=== PATIENT | male | born 1940 | race Caucasian/White ===

== ENCOUNTER 2018-02-15 16:55 | Emergency (ER) | payer OTHER ==
[2018-02-15 17:06] VITALS: BP 155/87; PULSE 82; TEMP 97.5; BMI 27.1
--- NOTE | 2018-02-15 17:58 | PDOC ---
History of Present Illness - General Chief Complaint: Pain Stated Complaint: STOMACH PAIN Time Seen by Provider: 02/15/18 17:50 - History of Present Illness Initial Comments: 02/15/18 17:56 78-year-old male presents for evaluation of an area of swelling and discomfort in his mid chest and abdominal area which has been there for years. He states there is a masturbates been getting bigger over the last few weeks. However amasses been there for years and he has been worked up by his physician which diagnosed him with a lipoma. No other associated symptoms. No systemic symptoms. Past History - Past Medical History Allergies/Adverse Reactions: Allergies Allergy/AdvReac Type Severity Reaction Status Date / Time No Known Allergies Allergy Verified 02/15/18 17:00 Home Medications: Ambulatory Orders Omeprazole 20 mg PO ASDIR 02/15/18 COPD: No Other medical history: arthritis - Immunization History Immunization Up to Date: Yes - Suicide/Smoking/Psychosocial Hx Smoking History: Never smoked Hx Alcohol Use: Yes (daily) Drug/Substance Use Hx: No Review of Systems - Review of Systems Constitutional: No: Fever Integumentary: Yes: See HPI, Lesions *Physical Exam - Vital Signs Last Vital Signs Temp Pulse Resp BP Pulse Ox 97.5 F L 82 18 155/87 97 02/15/18 17:01 02/15/18 17:01 02/15/18 17:01 02/15/18 17:01 02/15/18 17:01 - Physical Exam Comments: 02/15/18 17:57 There is about a 4 cm freely mobile nontender mass about the subcutaneous area overlying the xiphoid process. Normal overlying skin color and temperature Moderate Sedation - Procedure Monitoring Vital Signs: Procedure Monitoring Vital Signs Temperature 97.5 F L 02/15/18 17:01 Pulse Rate 82 02/15/18 17:01 Respiratory Rate 18 02/15/18 17:01 Blood Pressure 155/87 02/15/18 17:01 O2 Sat by Pulse Oximetry (%) 97 02/15/18 17:01 *DC/Admit/Observation/Transfer Diagnosis at time of Disposition: Lipoma of anterior chest wall - Discharge Dispostion Disposition: HOME Condition at time of disposition: Stable Decision to Admit order: No - Referrals Referrals: Filiberto Conroy MD [Staff Physician] - - Patient Instructions Printed Discharge Instructions: Lipoma Additional Instructions: May take Tylenol or Motrin for any associated discomfort. Please follow up with general surgery in 2-3 days for further evaluation and treatment options and return to the emergency room should symptoms worsen or go unresolved. - Post Discharge Activity
== END 2018-02-15 18:22 | disposition home or self-care (01) ==
LOC: JERFT 16:55
DX: D17.1 Benign lipomatous neoplasm of skin and subcutaneous tissue of trunk (principal)
CPT/HCPCS: 99281-25

== ENCOUNTER 2018-04-14 11:37 | Observation (INO) | payer OTHER ==
--- NOTE | 2018-04-14 12:00 | PDOC ---
History of Present Illness - General Chief Complaint: Chest Pain Stated Complaint: CHEST PAIN/COUGH Time Seen by Provider: 04/14/18 12:00 - History of Present Illness Initial Comments: 04/14/18 12:15 78 year old with past medical history of arthritis who presents with 1 month of cough productive of yellow and clear phlegm and shortness of breath and anterior chest pain only while coughing. The daughter brought him in because she was concerned that his symptoms have been going on for so long and because he will wake up at night gasping for air. The patient used to smoke 4-5 cigarettes a day for 40 years but quit smoking 22 years ago. For his symptoms that patient has been taking Tylenol and Advil. The patient denies any recent fevers, n/v/d but admits to constipation. The daughter notes that earlier in the course of symptoms the patient had a fever and one days had vomiting and diarrhea. The patient denies any other complaints at bedside. Past History - Past Medical History Allergies/Adverse Reactions: Allergies Allergy/AdvReac Type Severity Reaction Status Date / Time No Known Allergies Allergy Verified 04/14/18 11:42 Home Medications: Ambulatory Orders Omeprazole 20 mg PO ASDIR 02/15/18 Azithromycin [Zithromax Tri-Michael (3 DAYS) -] 500 mg PO DAILY #3 tablet 04/14/18 COPD: No - Immunization History Immunization Up to Date: Yes - Suicide/Smoking/Psychosocial Hx Smoking History: Never smoked Have you smoked in the past 12 months: No Information on smoking cessation initiated: No Hx Alcohol Use: No Drug/Substance Use Hx: No *Physical Exam - Vital Signs Last Vital Signs Temp Pulse Resp BP Pulse Ox 97.6 F 89 16 132/79 100 04/14/18 11:52 04/14/18 11:52 04/14/18 11:52 04/14/18 11:52 04/14/18 11:52 - Physical Exam Comments: 04/14/18 12:21 GENERAL: Awake, alert, and fully oriented, in no acute distress HEAD: No signs of trauma, normocephalic, atraumatic EYES: EOMI, sclera anicteric, conjunctiva clear ENT: oropharynx clear without exudates. Moist mucosa NECK: Normal ROM, supple LUNGS: No distress, speaks full sentences, clear to auscultation bilaterally HEART: Regular rate and rhythm, normal S1 and S2, no murmurs, rubs or gallops, peripheral pulses normal and equal bilaterally. ABDOMEN: Soft, nontender, normoactive bowel sounds. No guarding, no rebound. No masses EXTREMITIES : Normal inspection, Normal range of motion, no edema. No clubbing or cyanosis. NEUROLOGICAL: Cranial nerves II through XII grossly intact. Normal speech, no focal sensorimotor deficits SKIN: Warm, Dry, normal turgor, no rashes or lesions noted Moderate Sedation - Procedure Monitoring Vital Signs: Procedure Monitoring Vital Signs Temperature 97.6 F 04/14/18 11:52 Pulse Rate 89 04/14/18 11:52 Respiratory Rate 16 04/14/18 11:52 Blood Pressure 132/79 04/14/18 11:52 O2 Sat by Pulse Oximetry (%) 100 04/14/18 11:52 ED Treatment Course - LABORATORY CBC & Chemistry Diagram: 04/14/18 12:12 04/14/18 12:12 Medical Decision Making - Medical Decision Making 04/14/18 12:21 78 year old with past medical history of arthritis who presents with 1 month of cough productive of yellow and clear phlegm and shortness of breath and anterior chest pain only while coughing. The daughter brought him in because she was concerned that his symptoms have been going on for so long and because he will wake up at night gasping for air. The patient used to smoke 4-5 cigarettes a day for 40 years but quit smoking 22 years ago. For his symptoms that patient has been taking Tylenol and Advil. ED Course: consider bronchitis vs pna vs copd vs acs vs arrythmia cbc, cmp, ekg, cxr, trop duoneb EKG: normal sinus rhythm HR 80, no interval abnormalities, RBBB, narrow QRS, ST and T wave segments and morphology normal. CXR: mammilation of the hemidiaphragms, midline airway, appropriate vascular markings, no blunting of costophrenic angle, no cardiomegaly, as read by this sports writer and attending. *DC/Admit/Observation/Transfer Diagnosis at time of Disposition: NSTEMI (non-ST elevated myocardial infarction) - Discharge Dispostion Condition at time of disposition: Stable Decision to Admit order: Yes - Prescriptions Prescriptions: Azithromycin [Zithromax Tri-Michael (3 DAYS) -] 500 mg PO DAILY #3 tablet - Referrals - Patient Instructions - Post Discharge Activity
--- NOTE | 2018-04-14 12:12 | PDOC ---
Attending Attestation - HPI HPI: 04/14/18 12:43 The patient is a 78 year old male with a significant PMH of arthritis who presents to the emergency department with a productive cough for about 1 month. The patient reports that he has been waking up lately gasping for air secondary to his symptom. He also reports some associated chest pain with his productive cough. The patient reports that he was a smoker in the past but has not been a smoker for about 22 years. The patient endorses taking some tylenol/advil for his symptoms with no apparent relief. He denies any other symptoms. He denies any fever, chills, nausea, vomiting, diarrhea, constipation or urinary symptoms. He denies any shortness of breath, headache or dizziness. The patient denies any other complaints. Documentation prepared by Candelaria Garcia, acting as director of medical staff services for Anna Marie Carey MD. <Candelaria Garcia - Last Filed: 04/14/18 12:43> - Resident Resident Name: Venus Alaniz - ED Attending Attestation I have performed the following: I have examined & evaluated the patient, The case was reviewed & discussed with the resident, I agree w/resident's findings & plan, Exceptions are as noted - Physicial Exam PE: GENERAL: Awake, alert, and fully oriented, in no acute distress HEAD: No signs of trauma. +Tenderness over frontal sinuses. EYES: PERRLA, EOMI, sclera anicteric, conjunctiva clear ENT: Auricles normal inspection, hearing grossly normal, nares patent, oropharynx clear without exudates. Moist mucosa NECK: Normal ROM, supple, no lymphadenopathy, JVD, or masses LUNGS: Mildly decreased air entry B/L. No wheezes. +Rhonchi. Intermittent productive cough. HEART: Regular rate and rhythm, normal S1 and S2, no murmurs, rubs or gallops ABDOMEN: Soft, nontender, normoactive bowel sounds. No guarding, no rebound. No masses EXTREMITIES: Normal range of motion, no edema. No clubbing or cyanosis. No cords, erythema, or tenderness NEUROLOGICAL: Cranial nerves II through XII grossly intact. Normal speech, normal gait. Motor and sensation intact SKIN: Warm, Dry, normal turgor, no rashes or lesions noted. - Medical Decision Making Pt with hacking productive cough, sinus tenderness. Symptoms have persisted for 1 month. Suspect a bronchitis, will start abx. Will send labs. <Anna Marie Carey - Last Filed: 04/14/18 14:33>
[2018-04-14] MEDS ORDERED: ALBUTEROL SO4 2.5/IPRATROPIUM 0.5 INH SOL 3 ML VIAL.NEB. NEB ONE ×3 (12:19→20:32)
[2018-04-14 12:32] LABS: BASO % 2.9 % (0-2.0); EOS % 9.6 % (0-4.5); HEMATOCRIT 37.8 % (35.4-49); HEMOGLOBIN 13.4 GM/dL (11.7-16.9); MCH 33.9 pg (25.7-33.7); MCHC 35.4 g/dl (32.0-35.9); MEAN CELL VOLUME 95.9 fl (80-96); MEAN PLT VOLUME 9.3 fl (7.5-11.1); MONO % 7.8 % (3.8-10.2); NEUT % 57.7 % (42.8-82.8); PLATELET COUNT 243 K/MM3 (134-434); RBC 3.94 M/mm3 (4.00-5.60); RDW 13.6 % (11.9-15.9); WHITE BLOOD COUNT 6.4 K/mm3 (4.0-10.0)
[2018-04-14 13:07] LABS: ALBUMIN 3.4 g/dl (3.4-5.0); ALK PHOS 90 U/L (45-117); ANION GAP 5 MMOL/L (8-16); BILIRUBIN,TOTAL 0.6 mg/dL (0.2-1); BLOOD UREA NITROGEN 15 mg/dL (7-18); CALCIUM 8.4 mg/dL (8.5-10.1); CHLORIDE 104 mmol/L (98-107); CO2 30 mmol/L (21-32); CREATININE 0.8 mg/dL (0.55-1.3); GLUCOSE,RANDOM 115 mg/dL (74-106); POTASSIUM 4.2 mmol/L (3.5-5.1); SGOT/AST 29 U/L (15-37); SGPT/ALT 21 U/L (13-61); SODIUM 138 mmol/L (136-145); TOT PROT 6.5 g/dl (6.4-8.2)
[2018-04-14] MEDS ORDERED: ASPIRIN 325 MG TABLET PO ONE (13:17)
[2018-04-14] MEDS ORDERED: AZITHROMYCIN IVPB 500 MG in DEXTROSE 5%-WATER - 250 ML IVPB ONE (13:49)
[2018-04-14] MEDS ORDERED: ASPIRIN 325 MG TABLET ONE (14:24)
[2018-04-14] MEDS ORDERED: AZITHROMYCIN IVPB 500 MG/250 ML BAG IVPB ONE (14:24)
--- NOTE | 2018-04-14 14:41 | HP ---
CHIEF COMPLAINT: shortness of breath PCP: none HISTORY OF PRESENT ILLNESS: 78 yom with 40 pack year smoking history, reportedly quit 22 years ago,also with arthritis, comes with 1 month of progressive shortness of breath, cough with yellowish sputum, nasal stuffiness, post nasal drip. Over the last few days , daughter noticed patient was getting short of breath with lesser exertional, ongoing coughing with whitish sputum, so brought him to the ED. Per the daughter overall coughing and dyspnea having been going on for a few months, seems is progressing. No fevers, chills, chest pain, palpitations, dyspnea, dizziness, sick contacts, recent antibiotics, orthopnea/PND, leg swelling, abdominal or urinary symptoms. Reports weight gain 10 lbs over last 3 months. Did not receive flu vaccine this year. 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, retired From [place], lives with daughter independent in ADLs Family History: denies CAD/SCD or strokes in family Allergies No Known Allergies Allergy (Verified 04/14/18 11:42) HOME MEDICATIONS: Home Medications Medication Instructions Recorded Omeprazole 20 mg PO ASDIR 02/15/18 Azithromycin [Zithromax Tri-Michael (3 500 mg PO DAILY #3 tablet 04/14/18 DAYS) -] REVIEW OF SYSTEMS CONSTITUTIONAL: Present: weight gain as above Absent: fever, chills, diaphoresis, generalized weakness, malaise, loss of appetite HEENT: Present: rhinorrhea, nasal congestion, throat pain, Absent: throat swelling, difficulty swallowing, mouth swelling, ear pain, eye pain, visual changes CARDIOVASCULAR: Absent: chest pain, syncope, palpitations, irregular heart rate, lightheadedness , peripheral edema RESPIRATORY: Present: cough, shortness of breath, dyspnea with exertion, Absent: orthopnea, wheezing, stridor, hemoptysis GASTROINTESTINAL: Absent: abdominal pain, abdominal distension, nausea, vomiting, diarrhea, constipation, melena, hematochezia GENITOURINARY: Absent: dysuria, frequency, urgency, hesitancy, hematuria, flank pain, genital pain MUSCULOSKELETAL: Absent: myalgia, arthralgia, joint swelling, back pain, neck pain SKIN: Absent: rash, itching, pallor HEMATOLOGIC/IMMUNOLOGIC: Absent: easy bleeding, easy bruising, lymphadenopathy, frequent infections ENDOCRINE: Absent: unexplained weight loss, heat intolerance, cold intolerance NEUROLOGIC: Absent: headache, focal weakness or paresthesias, dizziness, unsteady gait, seizure, mental status changes, bladder or bowel incontinence PSYCHIATRIC: Absent: anxiety, depression, suicidal or homicidal ideation, hallucinations. PHYSICAL EXAMINATION Vital Signs - 24 hr 04/14/18 11:52 Temperature 97.6 F Pulse Rate 89 Respiratory 16 Rate Blood Pressure 132/79 O2 Sat by Pulse 100 Oximetry (%) GENERAL: Awake, alert, and fully oriented, in no acute distress. HEAD: Normal with no signs of trauma. EYES: Pupils equal, round and reactive to light, extraocular movements intact, sclera anicteric, conjunctiva clear. No lid lag. EARS, NOSE, THROAT: Ears normal, nares patent, oropharynx clear without exudates. Moist mucous membranes. NECK: soft, supple, no JVD appreciated, neck vein distension LUNGS: decreased air entry all over, few left basilar rales, no wheezing HEART: Regular rate and rhythm, normal S1 and S2 , unable to appreciate murmur/ rubs or gallops ABDOMEN: Soft, distended, non tender throughout, Hernia in xiphoid region and umbilicus, non tendeer, obese, no voluntary or involuntary guarding or rigidity , positive bowel sounds MUSCULOSKELETAL: Normal range of motion at all joints. No bony deformities or tenderness. No CVA tenderness. UPPER EXTREMITIES: 2+ pulses, warm, well-perfused. No cyanosis. No clubbing. No peripheral edema. LOWER EXTREMITIES: bilaterl palpable DP pulses, varicosities, chronic skin changes with discoloration bilateral feel with lower 1/3 leg, trace pedal edema NEUROLOGICAL: AAOX3, power 5/5, facial symmetry, tongue midline. Cranial nerves II-XII intact. Normal speech. Normal gait. PSYCHIATRIC: Cooperative. Good eye contact. Appropriate mood and affect. SKIN: Warm, dry, normal turgor, no rashes or lesions noted, normal capillary refill. Laboratory Results - last 24 hr 04/14/18 04/14/18 12:12 12:12 WBC 6.4 RBC 3.94 L Hgb 13.4 Hct 37.8 MCV 95.9 MCH 33.9 H MCHC 35.4 RDW 13.6 Plt Count 243 MPV 9.3 Absolute Neuts (auto) 3.7 Neutrophils % 57.7 Lymphocytes % 22.0 Monocytes % 7.8 Eosinophils % 9.6 H Basophils % 2.9 H Nucleated RBC % 0 Sodium 138 Potassium 4.2 Chloride 104 Carbon Dioxide 30 Anion Gap 5 L BUN 15 Creatinine 0.8 Creat Clearance w eGFR > 60 Random Glucose 115 H Calcium 8.4 L Total Bilirubin 0.6 AST 29 ALT 21 Alkaline Phosphatase 90 Troponin I 0.06 H Total Protein 6.5 Albumin 3.4 CXR result and images reviewed EKG NSR, RBBB ASSESSMENT/PLAN: 78 yom with piror heavy smoking history admitted with 1 month of cough and progressive dyspnea on exertion with borderline elevated troponin -Cough/dyspnea on exertion, suspect acute vs chronic bronchitis in the setting of underlying undiagnosed COPD, low suspicion for ACS or cardiac etiology -Elevated troponin, ?demand ischemia in the setting of above, clinical presentation not consistent with ACS, unlikely PE based on current absence, absence of hypoxia/tachycardia/pleuritic symptoms or risk factors -Arthritis Plan: Trial with azithromycin. Standing and prn nebs. Add symbicort. CT Chest, assess for underlying lung disease. telemetry, cycle troponin. Check 2Decho. Current presentation and exam not concerning for ACS, however will consult cardiology if repeat troponin elevated, rising or new concerns. Will need ischemia w/u inpatient vs outpatient based on clinical course. ASA. Check lipid panel/A1c. DVTPPX lovenox Disposition: admit to tele observation. D/c in 24hours if w/u neg, and no new concerns. Plan discussed with patient and daughter at bedside in detail, all questions answered. Total admit time spent 55 min. Visit type - Emergency Visit Emergency Visit: Yes ED Registration Date: 04/14/18 Care time: The patient presented to the Emergency Department on the above date and was hospitalized for further evaluation of their emergent condition. - New Patient This patient is new to me today: Yes Date on this admission: 04/14/18 - Critical Care Critical Care patient: No
--- NOTE | 2018-04-14 19:45 | EKG ---
Test Reason : Blood Pressure : / mmHG Vent. Rate : 080 BPM Atrial Rate : 080 BPM P-R Int : 152 ms QRS Dur : 124 ms QT Int : 410 ms P-R-T Axes : 042 004 036 degrees QTc Int : 472 ms NORMAL SINUS RHYTHM RIGHT BUNDLE BRANCH BLOCK ABNORMAL ECG NO PREVIOUS ECGS AVAILABLE Confirmed by MD PORTILLO, ETHAN ([id number]) on 04/14/2018 7:45:24 PM Referred By: Confirmed By:ETHAN NATH MD
[2018-04-14 21:24] VITALS: BMI 27.6
[2018-04-14] MEDS: ALBUTEROL SO4 2.5/IPRATROPIUM 0.5 INH SOL 3 ML VIAL.NEB. NEB PRN (21:30)
[2018-04-14] MEDS: BUDESONIDE/FORMETEROL FUMARATE 80/4.5 mcg INHALER IH SCH (22:50)
[2018-04-14] MEDS ORDERED: PT OWN MED DRAWER 7, Y5N ONE (23:07)
[2018-04-14] MEDS: ACETAMINOPHEN 325 MG TABLET (FP) PO PRN (23:16)
[2018-04-15 07:23] LABS: BASO % 0.8 % (0-2.0); EOS % 10.3 % (0-4.5); HEMATOCRIT 34.9 % (35.4-49); LYMPH % 36.6 % (8-40); MCH 33.1 pg (25.7-33.7); MCHC 34.4 g/dl (32.0-35.9); MEAN CELL VOLUME 96.2 fl (80-96); MEAN PLT VOLUME 9.4 fl (7.5-11.1); MONO % 7.8 % (3.8-10.2); NEUT % 44.5 % (42.8-82.8); PLATELET COUNT 210 K/MM3 (134-434); RBC 3.62 M/mm3 (4.00-5.60); RDW 13.7 % (11.9-15.9); WHITE BLOOD COUNT 5.7 K/mm3 (4.0-10.0)
[2018-04-15] MEDS: ALBUTEROL SO4 2.5/IPRATROPIUM 0.5 INH SOL 3 ML VIAL.NEB. NEB PRN ×2 (07:31→11:46)
[2018-04-15 07:51] LABS: CHOLESTEROL 152 mg/dL (50-200); HDL CHOLESTEROL 29 mg/dL (40-60); TRIGLYCERIDES 148 mg/dL (0-150)
[2018-04-15 07:57] LABS: ANION GAP 5 MMOL/L (8-16); BLOOD UREA NITROGEN 15 mg/dL (7-18); CALCIUM 8.4 mg/dL (8.5-10.1); CHLORIDE 104 mmol/L (98-107); CO2 30 mmol/L (21-32); CREATININE 0.8 mg/dL (0.55-1.3); GLUCOSE,RANDOM 100 mg/dL (74-106); MAGNESIUM 2.2 mg/dL (1.8-2.4); N-TERMINAL BNP 118.6 pg/ml (5-450); PHOSPHOROUS 4.5 mg/dL (2.5-4.9); SODIUM 139 mmol/L (136-145)
--- NOTE | 2018-04-15 09:51 | PN ---
Physical Exam: SUBJECTIVE: Patient seen and examined OBJECTIVE: Vital Signs Period Temp Pulse Resp BP Sys/Antonio Pulse Ox Last 24 Hr 97.6 F-99.2 F 71-95 16-20 108-135/56-79 97-100 GENERAL: The patient is awake, alert, and fully oriented, in no acute distress. HEAD: Normal with no signs of trauma. EYES: PERRL, extraocular movements intact, sclera anicteric, conjunctiva clear. No ptosis. ENT: Ears normal, nares patent, oropharynx clear without exudates, moist mucous membranes. NECK: Trachea midline, full range of motion, supple. LUNGS: Breath sounds equal, clear to auscultation bilaterally, no wheezes, no crackles, no accessory muscle use. HEART: Regular rate and rhythm, S1, S2 without murmur, rub or gallop. ABDOMEN: Soft, nontender, nondistended, normoactive bowel sounds, no guarding, no rebound, no hepatosplenomegaly, no masses. EXTREMITIES: 2+ pulses, warm, well-perfused, no edema. NEUROLOGICAL: Cranial nerves II through XII grossly intact. Normal speech, gait not observed. PSYCH: Normal mood, normal affect. SKIN: Warm, dry, normal turgor, no rashes or lesions noted Laboratory Results - last 24 hr 04/14/18 04/14/18 04/14/18 12:12 12:12 17:55 WBC 6.4 RBC 3.94 L Hgb 13.4 Hct 37.8 MCV 95.9 MCH 33.9 H MCHC 35.4 RDW 13.6 Plt Count 243 MPV 9.3 Absolute Neuts (auto) 3.7 Neutrophils % 57.7 Lymphocytes % 22.0 Monocytes % 7.8 Eosinophils % 9.6 H Basophils % 2.9 H Nucleated RBC % 0 Sodium 138 Potassium 4.2 Chloride 104 Carbon Dioxide 30 Anion Gap 5 L BUN 15 Creatinine 0.8 Creat Clearance w eGFR > 60 Random Glucose 115 H Hemoglobin A1c % Calcium 8.4 L Phosphorus Magnesium Total Bilirubin 0.6 AST 29 ALT 21 Alkaline Phosphatase 90 Troponin I 0.06 H 0.05 B-Natriuretic Peptide Total Protein 6.5 Albumin 3.4 Triglycerides Cholesterol Total LDL Cholesterol HDL Cholesterol 04/14/18 04/15/18 04/15/18 21:30 05:30 05:30 WBC 5.7 RBC 3.62 L Hgb 12.0 Hct 34.9 L MCV 96.2 H MCH 33.1 MCHC 34.4 RDW 13.7 Plt Count 210 MPV 9.4 Absolute Neuts (auto) 2.6 Neutrophils % 44.5 D Lymphocytes % 36.6 D Monocytes % 7.8 Eosinophils % 10.3 H Basophils % 0.8 Nucleated RBC % 0 Sodium 139 Potassium 4.0 Chloride 104 Carbon Dioxide 30 Anion Gap 5 L BUN 15 Creatinine 0.8 Creat Clearance w eGFR > 60 Random Glucose 100 Hemoglobin A1c % Calcium 8.4 L Phosphorus 4.5 Magnesium 2.2 Total Bilirubin AST ALT Alkaline Phosphatase Troponin I 0.06 H B-Natriuretic Peptide 118.6 Total Protein Albumin Triglycerides Cholesterol Total LDL Cholesterol HDL Cholesterol 04/15/18 04/15/18 04/15/18 05:30 05:30 05:30 WBC RBC Hgb Hct MCV MCH MCHC RDW Plt Count MPV Absolute Neuts (auto) Neutrophils % Lymphocytes % Monocytes % Eosinophils % Basophils % Nucleated RBC % Sodium Potassium Chloride Carbon Dioxide Anion Gap BUN Creatinine Creat Clearance w eGFR Random Glucose Hemoglobin A1c % 6.0 Calcium Phosphorus Magnesium Total Bilirubin AST ALT Alkaline Phosphatase Troponin I 0.06 H B-Natriuretic Peptide Total Protein Albumin Triglycerides 148 Cholesterol 152 Total LDL Cholesterol 104 H HDL Cholesterol 29 L Active Medications Generic Name Dose Route Start Last Admin Trade Name Freq PRN Reason Stop Dose Admin Acetaminophen 650 mg 04/14/18 14:41 04/14/18 23:16 Tylenol - PO 650 mg Q6H PRN Administration HEADACHE Albuterol/Ipratropium 1 amp 04/14/18 14:47 04/15/18 07:31 Duoneb - NEB 1 amp Q4H PRN Administration SHORTNESS OF BREATH Aspirin 81 mg 04/15/18 10:00 Asa - PO DAILY KIP Azithromycin 500 mg 04/15/18 10:00 Zithromax - PO 04/16/18 10:01 DAILY KIP Budesonide/Formoterol Fumarate 2 puff 04/14/18 22:00 04/14/18 22:50 Symbicort 80/4.5mcg - IH 2 puff BID KIP Administration Enoxaparin Sodium 40 mg 04/15/18 10:00 Lovenox - SQ DAILY [facility] Fluticasone Propionate 1 spray 04/15/18 10:00 Flonase - NS BID [facility] Influenza Virus Vaccine Quadrival 60 mcg 02/20/19 11:00 Flulaval Quad [id number] IM 04/15/18 11:01 .ONCE ONE Pneumococcal 13-Valent Conj Vacc 0.5 ml 04/15/18 10:00 Prevnar 13 Syringe - IM 04/15/18 10:01 .ONCE ONE ASSESSMENT/PLAN:
[2018-04-15] MEDS ORDERED: ASPIRIN 81 MG CHEWABLE TABLETS PO SCH (10:00)
[2018-04-15] MEDS ORDERED: PNEUMOC 13-VAL CONJ-DIP CRM/PF 0.5 ML DISP.SYRIN IM ONE (10:00)
[2018-04-15] MEDS ORDERED: ENOXAPARIN NA (PORCINE) 40 MG/0.4 ML DISP.SYRIN SQ SCH (10:00)
[2018-04-15] MEDS ORDERED: AZITHROMYCIN 250 MG TABLET PO SCH (10:00)
[2018-04-15] MEDS ORDERED: FLUTICASONE PROP 0.05% 16 GM NASAL SPRAY NS SCH (10:00)
[2018-04-15] MEDS ORDERED: PT OWN MED DRAWER 7, Y5N ONE (10:22)
[2018-04-15] MEDS: BUDESONIDE/FORMETEROL FUMARATE 80/4.5 mcg INHALER IH SCH (10:27)
[2018-04-15] MEDS ORDERED: FLU VACCINE QUAD 60 MCG/0.5 ML (MDV 18-19) IM ONE (11:00)
[2018-04-15] MEDS: ACETAMINOPHEN 325 MG TABLET (FP) PO PRN (11:11)
--- NOTE | 2018-04-15 14:43 | PN ---
Teaching Attending Note Name of Resident: Gabo Palma ATTENDING PHYSICIAN STATEMENT I saw and evaluated the patient. I reviewed the resident's note and discussed the case with the resident. I agree with the resident's findings and plan as documented. SUBJECTIVE: Mr Jewell complains of cough but otherwise is doing well. Denies cp, sob, n/v OBJECTIVE: Last Vital Signs Temp Pulse Resp BP Pulse Ox 36.6 C 73 16 125/69 97 04/15/18 12:27 04/15/18 12:27 04/15/18 12:27 04/15/18 12:27 04/15/18 10:03 Gen: nad Pulm: ctab w/o w/r/r CV: rrr w/o m/r/g Abd: +bs, s/nt/nd Ext: no c/c/e CBC, BMP 04/15/18 05:30 04/15/18 05:30 ASSESSMENT AND PLAN: -patient with chronic bronchitis -troponins negative -continue symbicort -continue duonebs -will be discharged on this -awaiting ECHO -if negative, can discharge home Problem List - Problems (1) Chronic bronchitis Code(s): J42 - UNSPECIFIED CHRONIC BRONCHITIS Qualifiers: Chronic bronchitis type: simple Qualified Code(s): J41.0 - Simple chronic bronchitis
--- NOTE | 2018-04-15 15:08 | DS ---
Physical Exam: SUBJECTIVE: Patient seen and examined OBJECTIVE: Vital Signs Period Temp Pulse Resp BP Sys/Antonio Pulse Ox Last 24 Hr 97.8 F-99.2 F 71-95 16-20 108-135/56-75 97-98 PHYSICAL EXAM GENERAL: Awake, alert, and fully oriented, in no acute distress. HEAD: Normal with no signs of trauma. EARS, NOSE, THROAT: Moist mucous membranes. NECK: soft, supple, no JVD appreciated, neck vein distension LUNGS: b/l good air entry, no wheezing HEART: Regular rate and rhythm, normal S1 and S2 , unable to appreciate murmur/ rubs or gallops ABDOMEN: Soft, distended, non tender throughout, Hernia in xiphoid region and umbilicus, non tendeer, obese, no voluntary or involuntary guarding or rigidity , positive bowel sounds MUSCULOSKELETAL: Normal range of motion at all joints. No bony deformities or tenderness. No CVA tenderness. UPPER EXTREMITIES: 2+ pulses, warm, well-perfused. No cyanosis. No clubbing. No peripheral edema. LOWER EXTREMITIES: bilaterl palpable DP pulses, varicosities, chronic skin changes with discoloration bilateral feel with lower 1/3 leg, trace pedal edema SKIN: Warm, dry, LABS Laboratory Results - last 24 hr 04/14/18 04/14/18 04/15/18 17:55 21:30 05:30 WBC 5.7 RBC 3.62 L Hgb 12.0 Hct 34.9 L MCV 96.2 H MCH 33.1 MCHC 34.4 RDW 13.7 Plt Count 210 MPV 9.4 Absolute Neuts (auto) 2.6 Neutrophils % 44.5 D Lymphocytes % 36.6 D Monocytes % 7.8 Eosinophils % 10.3 H Basophils % 0.8 Nucleated RBC % 0 Sodium Potassium Chloride Carbon Dioxide Anion Gap BUN Creatinine Creat Clearance w eGFR Random Glucose Hemoglobin A1c % Calcium Phosphorus Magnesium Troponin I 0.05 0.06 H B-Natriuretic Peptide Triglycerides Cholesterol Total LDL Cholesterol HDL Cholesterol 04/15/18 04/15/18 04/15/18 05:30 05:30 05:30 WBC RBC Hgb Hct MCV MCH MCHC RDW Plt Count MPV Absolute Neuts (auto) Neutrophils % Lymphocytes % Monocytes % Eosinophils % Basophils % Nucleated RBC % Sodium 139 Potassium 4.0 Chloride 104 Carbon Dioxide 30 Anion Gap 5 L BUN 15 Creatinine 0.8 Creat Clearance w eGFR > 60 Random Glucose 100 Hemoglobin A1c % 6.0 Calcium 8.4 L Phosphorus 4.5 Magnesium 2.2 Troponin I B-Natriuretic Peptide 118.6 Triglycerides 148 Cholesterol 152 Total LDL Cholesterol 104 H HDL Cholesterol 29 L 04/15/18 05:30 WBC RBC Hgb Hct MCV MCH MCHC RDW Plt Count MPV Absolute Neuts (auto) Neutrophils % Lymphocytes % Monocytes % Eosinophils % Basophils % Nucleated RBC % Sodium Potassium Chloride Carbon Dioxide Anion Gap BUN Creatinine Creat Clearance w eGFR Random Glucose Hemoglobin A1c % Calcium Phosphorus Magnesium Troponin I 0.06 H B-Natriuretic Peptide Triglycerides Cholesterol Total LDL Cholesterol HDL Cholesterol HOSPITAL COURSE: 78 yom with 40 pack year smoking history, reportedly quit 22 years ago,also with arthritis, comes with 1 month of progressive shortness of breath, cough with yellowish sputum, nasal stuffiness, post nasal drip. Over the last few days, daughter noticed patient was getting short of breath with lesser exertional, ongoing coughing with whitish sputum, so brought him to the ED. Examination and investigations were done. Ct chest was done which showed emphysema and pt was started on symbicort and ventolin. For nasal stuffiness pt is advised to use flonase inhaler and is also advised to take steam inhalation. ECHO was also done which shows mild to mod AR, Normal EF and stage 1 Diastolic HF. Cardiac monitoring in hospital didn't show any event. Now pt is feeling better and is dc is stable condition. We have started you on symbicort inhaler for trouble breathing and emhysema. We ave started you on aspirin. take one pill daily We have started you on cholestrol medication simvastatin . Take it in night. We have also started you on nasal spray flonase for yur nasal congestion. Please follow up with Dr Smiley pony trimmer for your further management of emphysema and PFT . Please follow up with energy systems engineer call your insurance and ask them which energy systems engineer he can go to. Please follow up with our primary care. dr frank hancock. Please follow up with surgeon dr Lemus for hernia. Eat low salt and low fat diet. Daily walk for 30 min. Please quit smoking and alcohol. In your CT scan. Two small left upper quadrant soft tissue nodules are seen which may be represent incidental accessory splenic tissue. Correlation with 3 month follow up abdomen CT is suggested. If you develop chest pain, sob, nausea, vomiting, lightheadedness or any new symptom please call doctor or go to hospital. Date of Admission:04/14/18 Date of Discharge: 04/15/18 Minutes to complete discharge: 45 Discharge Summary Reason For Visit: NSTEMI Current Active Problems Chronic bronchitis (Acute) NSTEMI (non-ST elevated myocardial infarction) (Acute) Condition: Stable - Instructions Diet, Activity, Other Instructions: We have started you on symbicort inhaler for trouble breathing and emhysema. We ave started you on aspirin. take one pill daily We have started you on cholestrol medication simvastatin . Take it in night. We have also started you on nasal spray flonase for yur nasal congestion. Please follow up with Dr Smiley pony trimmer for your further management of emphysema and PFT . Please follow up with energy systems engineer call your insurance and ask them which energy systems engineer he can go to. Please follow up with our primary care. dr frank hancock. Please follow up with surgeon dr Lemus for hernia. Eat low salt and low fat diet. Daily walk for 30 min. Please quit smoking and alcohol. In your CT scan. Two small left upper quadrant soft tissue nodules are seen which may be represent incidental accessory splenic tissue. Correlation with 3 month follow up abdomen CT is suggested. If you develop chest pain, sob, nausea, vomiting, lightheadedness or any new symptom please call doctor or go to hospital. Referrals: Frank Hancock MD [Staff Physician] - 1 Week Devan Smiley MD [Staff Physician] - 1 Week Abebe Madrigal MD [Staff Physician] - 1 Week Fracisco Lemus MD [Staff Physician] - 2 Weeks Disposition: HOME - Home Medications Comprehensive Discharge Medication List: Ambulatory Orders Omeprazole 20 mg PO ASDIR 02/15/18 Azithromycin [Zithromax Tri-Michael (3 DAYS) -] 500 mg PO DAILY #3 tablet 04/14/18 Aspirin [ASA -] 81 mg PO DAILY #30 tab.chew 04/15/18 Azithromycin [Zithromax 250mg Tablets -] 500 mg PO DAILY #3 tablet 04/15/18 Budesonide/Formeterol Fumarate [SYMBICORT 80/4.5mcg -] 2 puff IH BID #1 inhaler 04/15/18 Fluticasone Prop 0.05% Nasal [Flonase -] 1 spray NS BID #1 spray 04/15/18 Simvastatin 20 mg PO DAILY #30 tablet 04/15/18 This patient is new to me today: Yes Date on this admission: 04/15/18 Emergency Visit: Yes ED Registration Date: 04/14/18 Care time: The patient presented to the Emergency Department on the above date and was hospitalized for further evaluation of their emergent condition. Critical Care patient: No - Discharge Referral Referred to [facility] Med P.[facility].: No
--- NOTE | 2018-04-15 15:09 | ECHO ---
Version: 1 Name: TYLER KNIGHT Exam: Adult Echocardiogram Study Date: 04/15/2018, 12:01 PM Age: 78 Years MMode/2D Measurements & Calculations IVSd: 1.03 cm LVIDs: 2.8 cm LVIDd: 4.6 cm LVPWd: 0.84 cm LVOT diam: 2.37 cm Ao root diam: 2.8 cm LA dimension: 3.6 cm Doppler Measurements & Calculations MV E max eleazar: 50.2 cm/sec Med E/e': 9.7 MV A max eleazar: 66.4 cm/sec Med Peak E' Eleazar: 5.2 cm/sec MV E/A: 0.76 Lat E/e': 4.6 Lat Peak E' Eleazar: 10.9 cm/sec MR max P.4 mmHg Ao max P.7 mmHg Ao V2 max: 147.4 cm/sec AI P1/2t: 390.6 msec TR max eleazar: 220.3 cm/sec TR max P.4 mmHg Left Ventricle The left ventricular size, thickness and function are normal. Ejection Fraction = 60%. The transmitr al spectral Doppler flow pattern is suggestive of impaired LV relaxation. The left ventricular wall mot ion is normal. Right Ventricle The right ventricular systolic function is normal. Atria Normal left and right atrial size and function. Mitral Valve There is trivial mitral valve thickening. There is mild mitral regurgitation. Tricuspid Valve There is mild tricuspid regurgitation. Right ventricular systolic pressure is normal. Aortic Valve There is mild aortic valve thickening. Mild to moderate aortic regurgitation. Pulmonic Valve The pulmonic valve is not well visualized. Trace pulmonic valvular regurgitation. Great Vessels The aortic root is normal size. Pericardium/Pleura There is no pericardial effusion. Summary Statements The left ventricular size, thickness and function are normal The pulmonic valve is not well visualized. The aortic root is normal size. There is no pericardial effusion. Ejection Fraction = 60%. The transmitral spectral Doppler flow pattern is suggestive of impaired LV relaxation. The right ventricular systolic function is normal. Normal left and right atrial size and function. There is trivial mitral valve thickening. There is mild mitral regurgitation. There is mild tricuspid regurgitation. Right ventricular systolic pressure is normal. Mild to moderate aortic regurgitation. There is mild aortic valve thickening. Trace pulmonic valvular regurgitation. Chandu Mathis MD 04/15/2018, 8:09 PM Ordering Physician: GIULIANO VIEIRA Referring Physician: GIULIANO VIEIRA Performed By: ANGELINA
[2018-04-15 15:35] VITALS: BP 149/75; PULSE 82; TEMP 98.4
== END 2018-04-15 16:25 | disposition home or self-care (01) ==
LOC: JER 11:37 → JERBED 13:49 → J4W 20:56
PROVIDERS: ADMIT Hospitalist; ATTEND Hospitalist
PROC: 3E0234Z Introduction of Serum, Toxoid and Vaccine into Muscle, Percutaneous Approach (ICD-10-PCS; principal; 2018-04-14)
PROC: 3E0334Z Introduction of Serum, Toxoid and Vaccine into Peripheral Vein, Percutaneous Approach (ICD-10-PCS; 2018-04-14)
PROC: 3E013GC Introduction of Other Therapeutic Substance into Subcutaneous Tissue, Percutaneous Approach (ICD-10-PCS; 2018-04-14)
PROC: 3E0F7GC Introduction of Other Therapeutic Substance into Respiratory Tract, Via Natural or Artificial Opening (ICD-10-PCS; 2018-04-14)
PROC: 3E03329 Introduction of Other Anti-infective into Peripheral Vein, Percutaneous Approach (ICD-10-PCS; 2018-04-14)
DX: I21.4 Non-ST elevation (NSTEMI) myocardial infarction (principal); J41.0 Simple chronic bronchitis; J43.2 Centrilobular emphysema; Z23 Encounter for immunization
CPT/HCPCS: 36415; 71046-TC-FY; 71250-TC; 80048; 80053; 80061; 83036; 83721; 83735; 83880; 84100; 84484; 85025; 90471; 90670; 90688; 93005; 93010; 93306-TC; 94640; 96365; 96372; 99285-25; G0378